=== PATIENT | female | born 1965 | race Caucasian/White ===

== ENCOUNTER 2018-10-07 06:50 | Day surgery (SDC) | payer OTHER ==
[~2018-10-07] VITALS: Ht 165.1 cm; Wt 88.5 kg
[~2018-10-07 06:50] MED LIST: CALCIUM 500 +1 EAC1 PO; CINNAMON500 MG PO; CYTOMEL25 MCG; DEPO-PROVER150 MG/ML IM; DYAZIDE 37.5-251 EA PO; LEVOTHYROXINE50 MCG PO; MINOCIN50 MG PO; SIMVASTATIN20 MG
[2018-10-07] MEDS ORDERED: AUGMENTIN 875-1 EACH PO (07:19)
--- NOTE | 2018-10-07 09:07 | NUR ---
10/07/18 0907 Sheets,Ashley 0901 PT ARRIVED TO PACU ON 10 L VIA MASK, PT REACTIVE TO TACTILE STIMULI. RESP EVEN AND UNLABORED. 904 PT WOKE TO TACTIEL STIMULI AND DENIES PAIN AND NAUSEA. PT ORIENTED TO PACU. O2 DECREASED TO 6L VIA MASK.
--- NOTE | 2018-10-07 10:32 | NUR ---
1015 PT EATING CRACKERS AND DRINKING WATER TOLERATES WELL.
--- NOTE | 2018-10-07 10:33 | NUR ---
1030 PT DENIES PAIN OR NAUSEA. TOES PINK AND WARM WITH GOOD CAP REFILL.
--- NOTE | 2018-10-07 11:21 | NUR ---
1100 PT UP TO BATHROOM, SHE WAS ABLE TO VOID. DISCHARGE INSTRUCTIONS GIVEN TO PT AND MOM BOTH VOICED UNDERSTANDING. PT DENIES PAIN OR NAUSEA
--- NOTE | 2018-10-08 07:02 | OR ---
[facility] [address], [place] [address] Signed DATE OF OPERATION: 10/07/2018 SURGEON: Skyler Romero MD PREOPERATIVE DIAGNOSIS: Loose body, left knee. POSTOPERATIVE DIAGNOSES: 1. Loose body, left knee. 2. Lateral meniscal tear, left knee. 3. 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 PROCEDURE PERFORMED: Knee arthroscopy with removal of loose body x1 and partial lateral meniscectomy. ANESTHESIA: General. SPECIMENS AND COMPLICATIONS: There were no specimens or complications. TOURNIQUET TIME: About 35 minutes. WHAT WAS DONE: The patient was taken to the operating room. After anesthesia was induced and airway secured, the patient was positioned, prepped and draped in a routine sterile fashion. The leg was exsanguinated with an Esmarch bandage. Pneumatic tourniquet was inflated to 300 mmHg pressure. The arthroscope was inserted through the standard anterolateral portal and an outflow cannula was placed superolaterally. Diagnostic arthroscopy revealed fairly unremarkable suprapatellar pouch. The patellofemoral joint revealed a concerning amount of black staining of the articular surface. The medial recess was unremarkable. The medial compartment again showed significant black and a purplish discoloration of the articular surface, but not of the meniscus. An anteromedial portal was created using transillumination and localization with a spinal needle. The medial meniscus was completely unremarkable. There was no loose body identifiable in the medial recess or the medial compartment. We were then able to pass the scope between the medial condyle and the PCL posteriorly and again, there was no identifiable loose body. The intercondylar notch had impressive amount of synovitis, which again was debrided with the motorized shaver introduced through the anterolateral portal. The Electronically Signed By: SKYLER ROMERO MD 10/08/18 0702 PATIENT NAME: DAPHNE MONTANEZ OPERATIVE REPORT DATE OF : 65 REPORT #: [id number] PHYSICIAN: SKYLER ROMERO MD PCP: URSULA ANGEL MD REPORT IS CONFIDENTIAL AND NOT TO BE RELEASED WITHOUT AUTHORIZATION [facility] [address], [place] [address] Signed lateral compartment was difficult to visualize. Again, after we did a fairly significant synovectomy in the anterior aspect of the lateral compartment, we were able to pass the probe into the lateral compartment and determined there was a rather significant lateral meniscal tear. We then debrided the lateral meniscal tear with a motorized shaver, and with the basket forceps. Again, there was a significant articular staining of both the femoral condyle and the tibial plateau with a black purplish speckling. The lateral recess did show a tiny loose body. We passed the shaver into the lateral recess and we were able to morselize it and remove it from the joint. The knee was then copiously irrigated and drained. The portals were closed. Sterile dressings applied. The patient was awakened, taken to recovery room where she arrived in stable condition. Counts were correct and antibiotic protocols were followed. MD WINIFRED DavisB/MODL /[id number] Copies: ~ Electronically Signed By: SKYLER ROMERO MD 10/08/18 0702 PATIENT NAME: DAPHNE MONTANEZ OPERATIVE REPORT DATE OF : 65 REPORT #: [id number] PHYSICIAN: SKYLER ROMERO MD PCP: URSULA ANGEL MD REPORT IS CONFIDENTIAL AND NOT TO BE RELEASED WITHOUT AUTHORIZATION
== END 2018-10-07 11:10 | disposition home or self-care (01) ==
LOC: OPS 06:50 → DS 06:50 → OPS 08:15
PROVIDERS: Orthopaedic Surgery
PROC: 0SBD4ZZ Excision of Left Knee Joint, Percutaneous Endoscopic Approach (ICD-10-PCS; principal; 2018-10-07 08:15)
DX: S83.282A Other tear of lateral meniscus, current injury, left knee, initial encounter (principal); M65.862 Other synovitis and tenosynovitis, left lower leg; I10 Essential (primary) hypertension; E03.9 Hypothyroidism, unspecified; E78.00 Pure hypercholesterolemia, unspecified; E66.9 Obesity, unspecified; Z79.899 Other long term (current) drug therapy; Z68.32 Body mass index [BMI] 32.0-32.9, adult
CPT/HCPCS: 01400; J0690; J1100; J1885; J2250; J2405; J2704; J2765; J3010; J7120